=== PATIENT | male | born 1950 | race Caucasian/White ===

== ENCOUNTER → 2018-10-05 | Outpatient (CLI) | payer MEDICARE | LOC: GMAE 13:25 | PROVIDERS: ATTEND Family Medicine | DX: I10 Essential (primary) hypertension (principal); Z85.46 Personal history of malignant neoplasm of prostate ==

== ENCOUNTER 2019-02-14 11:19 | Emergency (ER) | payer MEDICARE ==
--- NOTE | 2019-02-14 11:38 | ED.PDOC ---
History of Present Illness - General Chief Complaint: Problem Stated Complaint: passing blood clots after falling Time Seen by Provider: 02/14/19 11:23 - History of Present Illness Initial Comments: 68 yo M with hx of prostate cancer in remission s/p prostatectomy who presents for hematuria after falling with direct trauma to L groin/perineum 6 days ago. Seen by PCP 5 days ago, who believed the sx would clear up on it's own. Pt has persistent sx and now passing clots. Pt reports he is still able to urinate this morning but never feels that he fully empties his bladder. Denies f/c, back pain, flank pain, dysuria, urinary frequency, abd pain, n/v/d, CP, SOB, scrotal pain, scrotal swelling, penile pain, penile swelling, penile discharge. Allergies/Adverse Reactions: Allergies NO KNOWN ALLERGY Allergy (Verified 02/14/19 11:31) Home Medications: Ambulatory Orders Esomeprazole Magnesium [Nexium] 20 mg PO DAILY 02/14/19 Finasteride [Proscar] 5 mg PO DAILY #14 tab 02/14/19 Lisinopril 10 mg PO DAILY 02/14/19 Review of Systems - Review of Systems Constitutional: Denies: chills, fever Respiratory: Denies: cough, short of breath Cardiology: Denies: chest pain, edema, palpitations Gastrointestinal/Abdominal: Denies: abdominal pain, diarrhea, nausea, vomiting Genitourinary: States: hematuria, other - +sensation of not being able to fully empty bladder, no flank pain. Denies: discharge, dysuria Musculoskeletal: Denies: back pain, neck pain Skin: Denies: lesions, rash Neurological: Denies: numbness, weakness Past Medical History (General) - Patient Medical History Hx Stroke: No Hx Congestive Heart Failure: No Hx Hypertension: Yes Hx Diabetes: No Hx Cancer: Yes - Prostate - Vaccination History Hx Influenza Vaccination: Yes Hx Pneumococcal Vaccination: No - Social History Hx Tobacco Use: No Family Medical History - Family History Father Family History: Unknown Living Status: Unknown Physical Exam - Physical Exam General Appearance: Alert, No apparent distress, Well Developed, Well Nourished Neck: full range of motion, supple Cardiovascular/Respiratory: regular rate, rhythm, no M/R/G, normal peripheral pulses, no JVD, normal breath sounds, no respiratory distress Gastrointestinal/Abdominal: normal bowel sounds, non tender, soft, no organomegaly, no pulsatile mass, other - No distention, guarding, rebound, TTP, mass. Male Genital Exam: normal genitalia, no hernia, other - No signs of trauma. No TTP, swelling, erythema, discharge, wounds, blood. Back Exam: no CVA tenderness, no vertebral tenderness Extremity: normal range of motion, non-tender, normal inspection Neurologic: no motor/sensory deficits, alert Skin Exam: normal color, other - No rash, wounds. Lymphatic: no adenopathy Progress - Progress Progress: 02/14/19 11:[address] scan. Will obtain post void residual and labs, will try and touch base with urologist. 02/14/19 13:11 Pt states he is doing well, denies any pain, denies urinary retention, however had not been able to provide any urine. States he does not need to go. 02/14/19 13:24 Reports urinary retention. Will place catheter. 02/14/19 14:05 800cc bright red urine from catheter placement. Discussed with Dr. Novak, urology, states he has no room in his practice to follow up with the pt. He has not seen the pt in 10 yrs. States if pt hemodynamically stable, suggests follow up with urology outpt. Will discuss with media/instructional designer urology to ensure follow up. Discussed with pt. Agrees with plan. 02/14/19 14:37 Discussed with urology media/instructional designer, Dr. Gil, agrees with plan of care, recommends proscar 5mg po daily and follow up in the clinic. 02/14/19 15:00 I have explained and reviewed all results with the pt. I explained that emergent conditions may arise and to return to the ER for new, worsening, or any persistent conditions. I've explained the importance of f/u for recheck. All questions and concerns addressed at this time. Pt understands and agrees with plan. Pt well appearing, NAD, is stable for discharge. Deisi Joshua MD Emergency Medicine Physician Billing Number [id number] 02/14/19 15:20 - Results/Orders Results/Orders: 02/14/19 11:40 Laboratory Results - last 24 hr 02/14/19 02/14/19 02/14/19 11:40 11:40 13:40 WBC 5.4 RBC 4.58 L Hgb 14.4 Hct 41.7 L MCV 91.0 MCH 31.4 H MCHC 34.5 RDW 14.5 Plt Count 150 MPV 9.5 Absolute Neuts (auto) 2.50 Absolute Lymphs (auto) 2.30 Absolute Monos (auto) 0.60 Absolute Eos (auto) 0.10 Absolute Basos (auto) 0.00 Neutrophils % 44.9 Lymphocytes % 42.8 Monocytes % 10.5 H Eosinophils % 1.5 Basophils % 0.3 Sodium 141 Potassium 3.8 Chloride 105 Carbon Dioxide 25 BUN 16 Creatinine 1.10 Random Glucose 116 H Urine Color Red Urine Appearance Cloudy Urine pH 6.0 Ur Specific Kosse 1.025 Urine Protein >=300 H Urine Glucose (UA) Negative Urine Ketones Negative Urine Blood Large H Urine Nitrite Negative Urine Bilirubin Small H Urine Urobilinogen 0.2 Ur Leukocyte Esterase Negative Urine RBC Tntc H Urine WBC 0 Ur Epithelial Cells 0 Urine Bacteria 2+ H US Bladder: IMPRESSION: Urinary bladder distended, patient not able to void. Debris versus soft tissue mass in the base of the bladder. Prostate not seen. Left ureteral jets seen within the bladder. Electronically signed by: Donal Hicks MD 02/14/2019 1:24 PM CDT Departure - Departure Clinical Impression: Hematuria, gross, Acute urinary retention Time of Disposition: 14:38 Disposition: Discharge to Home or Self Care Health Concerns: Condition: stable Departure Forms: ED Discharge - Pt. Copy, Patient Portal Self Enrollment Instructions: DI for Urinary Retention in Men, Blood in the Urine (Hematuria), Adult (DC) Referrals: KATINA GIL [Referring] - 1-5 Days Prescriptions: Finasteride [Proscar] 5 mg PO DAILY #14 tab Home Medications: Ambulatory Orders Esomeprazole Magnesium [Nexium] 20 mg PO DAILY 02/14/19 Finasteride [Proscar] 5 mg PO DAILY #14 tab 02/14/19 Lisinopril 10 mg PO DAILY 02/14/19 Additional Instructions: Follow up: [facility] As needed, if symptoms worsen
--- NOTE | 2019-02-14 13:26 | US ---
EXAM DESCRIPTION: Bladder: ULTRASOUND. CLINICAL HISTORY: 68 years Male post-void for residual COMPARISON: None Available. TECHNIQUE: Transcutaneous scanning: Stephen-scale and Doppler modes. FINDINGS: Bladder measurements 8.0 x 8.6 x 8.0 for estimated volume 290.2 mL. Color Doppler left ureteral jet. Patient unable to void. Soft tissue density in the base of the bladder. Prostate gland not seen. IMPRESSION: Urinary bladder distended, patient not able to void. Debris versus soft tissue mass in the base of the bladder. Prostate not seen. Left ureteral jets seen within the bladder. Electronically signed by: Donal Hicks MD 02/14/2019 1:24 PM CDT
[2019-02-14] MEDS ORDERED: LIDOCAINE 2 % GEL 5 ML TUBE TOP ONE ×2 (13:59→14:03)
[2019-02-14 15:06] VITALS: BP 154/92; TEMP 97.3; O2SAT 97
== END 2019-02-14 15:06 | disposition home or self-care (01) ==
LOC: ER 11:19
DX: R31.0 Gross hematuria (principal); R33.9 Retention of urine, unspecified; I10 Essential (primary) hypertension; Z90.79 Acquired absence of other genital organ(s); Z85.46 Personal history of malignant neoplasm of prostate; Z79.899 Other long term (current) drug therapy

== ENCOUNTER → 2019-06-17 | Outpatient (CLI) | payer MEDICARE ==
--- NOTE | 2019-06-17 13:14 | CT ---
EXAM DESCRIPTION: Abdomen/Pelvis w/wo Contrast CLINICAL HISTORY: 68 years Male, HEMATURIA GROSS TECHNIQUE: This exam was performed according to our departmental dose-optimization program, which includes automated exposure control, adjustment of the mA and/or kV according to patient size and/or use of iterative reconstruction technique. COMPARISON: None at time of initial interpretation. FINDINGS: Bibasilar volume loss. No focal consolidation or suspicious pulmonary nodule. Hepatic steatosis. No suspicious hepatic lesion. No biliary dilatation. The portal vein is patent. The gallbladder is unremarkable. The spleen, pancreas and adrenal glands are unremarkable. Small duodenal diverticulum. Prostatectomy. Scattered colonic diverticula without focal inflammatory change. No evidence of bowel obstruction. No findings to suggest appendicitis. Normal appendix. Horseshoe kidney. No hydronephrosis. No urolithiasis. Symmetric renal enhancement. No urothelial lesion identified. Unremarkable bladder. Small cystocele. No adenopathy. No focal fluid collection. No free air. Normal caliber abdominal aorta. Mild atherosclerotic disease No acute or suspicious osseous abnormality. Scattered degenerative changes present. Bilateral L4 pars defects with associated anterolisthesis. IMPRESSION: Horseshoe kidney. No hydronephrosis, urolithiasis, enhancing renal masses or urothelial lesion identified. 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
== END ==
LOC: CT 08:00
PROVIDERS: ATTEND Family Medicine
DX: R31.0 Gross hematuria (principal); Q63.1 Lobulated, fused and horseshoe kidney

== ENCOUNTER → 2019-10-13 | Outpatient (CLI) | payer MEDICARE | LOC: GMAE 11:17 | PROVIDERS: ATTEND Family Medicine | DX: Z85.46 Personal history of malignant neoplasm of prostate (principal); I10 Essential (primary) hypertension; R53.83 Other fatigue ==